=== PATIENT | male | born 1985 | race Caucasian/White ===

== ENCOUNTER 2020-11-19 11:19 | Emergency (ER) | payer OTHER ==
[~2020-11-19 11:19] MED LIST: BACTRIM DS TAB1 EACH PO; IBU600 MG PO; IBUPROFEN800 MG PO; KEFLEX CAP 500500 MG PO; KEFLEX500 MG PO
[2020-11-19 12:09] LABS: HEMOGLOBIN 14.4 gm/dl (14.0-17.5); RED BLOOD COUNT 4.65 M/UL (4.20-5.50)
[2020-11-19 12:31] LABS: BUN/CREATININE RATIO 18 (0-10)
[2020-11-19] MEDS ORDERED: DOXYCYCLINE MO100 MG PO (15:18)
[2020-11-21 04:09] LABS: CHLAMYDIA BY NAA Negative (Negative); GONOCOCCUS BY NAA Positive (Negative); TRICH VAG BY NAA Negative (Negative)
== END 2020-11-19 15:30 | disposition home or self-care (01) ==
LOC: ER1 11:19
PROVIDERS: Nurse Practitioner
DX: N39.0 Urinary tract infection, site not specified (principal); N45.1 Epididymitis; Z72.51 High risk heterosexual behavior; J45.909 Unspecified asthma, uncomplicated; F17.210 Nicotine dependence, cigarettes, uncomplicated; Z88.1 Allergy status to other antibiotic agents
CPT/HCPCS: 76870; 80053; 81001; 85025; 87086; 87661; 96374; 96375; 99284; J1885; J1956; J2405